=== PATIENT | male | born 1960 | race Caucasian/White ===

== ENCOUNTER 2018-08-28 17:38 | Emergency (ER) | payer SELFPAY ==
[2018-08-28] MEDS ORDERED: Acetaminophen 325 MG Tab PO ONE (18:28)
--- NOTE | 2018-08-28 18:28 | EDM.PDOC ---
ED HPI GENERAL MEDICAL PROBLEM - General Chief Complaint: Fever Stated Complaint: [facility] Time Seen by Provider: 08/28/18 18:01 Source of Information: Reports: Patient History Limitations: Reports: No Limitations - History of Present Illness INITIAL COMMENTS - FREE TEXT/NARRATIVE: 57-year-old male presents to the ED per [facility]. Female that is in the room identifies that he's been quite confused over the last 36-48 hours. Heart related all today. Has had no nausea or vomiting. Intermittent high fevers and developing chills while in the ED. Patient has chronic severe peripheral vascular disease and starting to have skin breakdown on both lower extremities over the last few weeks. He's got dry gangrene involving the left second third fourth and fifth toes. Is scheduled to see a vascular surgeon in [place] within the next 10 days. Apparently the feet have been very painful but he denies pain at this time due to confusion and acute delirium. He is very febrile on examination. Rambles when he speaks. No useful history could be gleaned from the patient as most of the answers that he provided were corrected by the female in the room. Onset: Gradual (Skin breakdown both lower extremities over the last several weeks.) Onset Date: 08/26/18 (Her to become confused disoriented over the last 36-48 hours.) Duration: Hour(s): (6 hours), Waxing/Waning Location: Reports: Generalized (Associate with high fever confusion. Altered level of consciousness is which is waxing and waning.) Quality: Reports: Other (After level of consciousness which is waxing and waning.) Severity: Severe Improves with: Reports: None Worsens with: Reports: None Context: Reports: Other. Denies: Activity, Exercise, Lifting, Sick Contact, Trauma Associated Symptoms: Reports: Confusion (Acute febrile illness over the last 36- 48 hours.), Cough, cough w sputum ( reports mild cough.), Fever/Chills ( Fever definitely over the last 36 hours.), Loss of Appetite, Malaise, Rash ( Both lower extremities have open skin wounds below the knee with skin sloughing. There is also gangrene of the left second third fourth and fifth toes.), Shortness of Breath, Weakness. Denies: Chest Pain, Diaphoresis, Nausea/ Vomiting, Seizure Treatments WHARF ATTENDANT: Reports: Other (see below) (None as far as I can ascertain.) Bilateral Foot Pain Score (Numeric/FACES): 5 - Related Data Allergies Allergy/AdvReac Type Severity Reaction Status Date / Time No Known Allergies Allergy Verified 08/28/18 17:47 Home Meds: Home Meds Carvedilol 12.5 mg PO BID 08/28/18 [History] Clopidogrel [Plavix] 75 mg PO DAILY 08/28/18 [History] Furosemide 40 mg PO BID 08/28/18 [History] Levothyroxine [Sythroid] 100 mcg PO DAILY 08/28/18 [History] atorvaSTATin [Lipitor] 40 mg PO DAILY 08/28/18 [History] glipiZIDE [Glucotrol XL] 5 mg PO DAILY 08/28/18 [History] Past Medical History Cardiovascular History: Reports: Bypass, CAD, High Cholesterol, Hypertension, PR (Triple bypass required in November 2016), PVD (Severe peripheral vascular disease with dry gangrene involving the left second third fourth and fifth toes. ) Respiratory History: Reports: COPD Genitourinary History: Reports: Chronic Renal Insuffiency, Other (See Below) Other Genitourinary History: "kidney issues" Endocrine/Metabolic History: Reports: Diabetes, Type II (Controlled with glipizide.) - Past Surgical History Cardiovascular Surgical History: Reports: Coronary Artery Bypass Social & Family History - Tobacco Use Smoking Status *Q: Former Smoker Used Tobacco, but Quit: Yes Month/Year Tobacco Last Used: 2017 - Recreational Drug Use Recreational Drug Use: No - Living Situation & Occupation Occupation: Unemployed ED ROS GENERAL - Review of Systems Review Of Systems: See Below Constitutional: Reports: Fever, Chills, Malaise, Fatigue, Decreased Appetite HEENT: Reports: Other (Dry mouth.) Respiratory: Reports: Shortness of Breath, Cough, Sputum. Denies: Wheezing, Pleuritic Chest Pain Cardiovascular: Reports: Blood Pressure Problem, Dyspnea on Exertion (Right dependent edema both lower extremities.), Edema. Denies: Chest Pain, Claudication, Lightheadedness, Orthopnea Endocrine: Reports: Fatigue, High Glucose GI/Abdominal: Reports: Constipation : Reports: Frequency Musculoskeletal: Reports: Back Pain, Other (Was having severe pain in his left lower extremity rest pain. Developing get dry gangrene of the left second third fourth and fifth toes.) Skin: Reports: Rash, Erythema (Both lower extremities both lower extremities), Other (Skin sloughing with erythema both lower extremities slightly worse than the left as compared to the right. The skin sloughing and erythema and possible superficial ulcers involving both lower extremities below the knees. She did dependent edema which apparently is chronic.) Neurological: Reports: Confusion, Other (Disorientation to time and place.) Psychiatric: Reports: Agitation (Mildly agitated alter mating with confusion and lethargy) Hematologic/Lymphatic: Reports: No Symptoms ED EXAM, SEPSIS - Physical Exam Exam: See Below Exam Limited By: Altered Mental Status (Patient is acutely confused and delirious at the time my examination. None of the questions that asked of him came back truthful due to confusion he just confabulates.) General Appearance: Other (A warm to palpation. Dry lips with some dried blood on his lower lip.) Eye Exam: Bilateral Eye: Normal Inspection (No scleral icterus.) Throat/Mouth: Other (Tongue and oral cavity are very dry) Head: Atraumatic (.), Normocephalic Neck: Normal Inspection, Supple, Non-Tender, Full Range of Motion. No: Lymphadenopathy (L), Lymphadenopathy (R) Respiratory/Chest: Respiratory Distress (Tachypnea at rest 22/m.), Decreased Breath Sounds (Increased breath sounds to the posterior 25% of lung [place] bilaterally.), Rhonchi (Few rhonchi upper anterior chest that seem to clear with coughing.). No: Rales, Wheezing Cardiovascular: Regular Rate, Rhythm, No Gallop (Resting tachycardia 1 12/m.), No Murmur, No Rub, Tachycardia, Other (Well-healed midline sternotomy incision due to bypass done in November 2017.). No: Normal Peripheral Pulses Peripheral Pulses: 0: Posterior Tibial (L) (Pulses in his feet dorsalis pedis are only identified by ultrasound.), Posterior Tibial (R), Dorsalis Pedis (L), Dorsalis Pedis (R) GI/Abdominal Exam: No Mass, Distended ( No tympany identified.), Other (Abdomen is distended and very firm to palpation.). No: Guarding, Rigid Back: Normal Inspection, Other. No: CVA Tenderness (L) (Unable to sit up on his own. Required 2 person assist), CVA Tenderness (R) Extremities: Other (Lower extremities below the knee shows superficial ulcerations in multiple areas with skin breakdown. Both legs are grossly edematous eye 4+ pitting edema to the knee. He has dry gangrene involving the left second third fourth and fifth toes. Skin sloughing from the anterior aspect of both lower extremities worse on the left as compared to the right. Diffuse erythema scattered both lower extremities. Both lower extremities have wounds that are oozing serous fluid. Ultrasound will be obtained from both lower extremities.) Neurological: Confused, Disoriented (Disoriented to time and place. Confabulates and makes up answers to questions asked of him.), Memory Loss Remote Events Psychiatric: Normal Affect Skin: Warm, Dry. No: Intact, Normal Color, No Rash Lymphatic: Bilateral: Inguinal Adenopathy (Mild adenopathy both inguinal areas.) EKG INTERPRETATION EKG Date: 08/28/18 Time: 18:20 Rhythm: Other Rate (Beats/Min): 106 [place]: LAD-Left [place] Deviation (-28) P-Wave: Enlarged (Possible left atrial enlargement.) QRS: Other (Increased soft tissue of the limb and precordial leads. There are definite Q waves in lead V1 and V3 V4 and V5 compatible with anteroseptal infarct in the past. There are small Q waves in 1 and aVL less than 25% of the QRS complex.) QT: Prolonged (QTC is mildly prolonged.) EKG Interpretation Comments: Abnormal ECG Course - Vital Signs Last Recorded V/S: Last Vital Signs Temp 36.9 C 08/28/18 21:18 Pulse 93 08/28/18 21:18 Resp 22 H 08/28/18 21:18 BP 130/74 08/28/18 21:18 Pulse Ox 97 08/28/18 21:18 - Orders/Labs/Meds Orders: Active Orders 24 hr Category Date Time Status EKG Documentation Completion [RC] STAT Care 08/28/18 18:04 Active Insert Whittaker Catheter [Insert Urinary Catheter] [OM.PC] Care 08/28/18 20:00 Ordered Q24H Insert Urinary Catheter [OM.PC] Q24H Care 08/28/18 20:15 Ordered RT Aerosol Therapy [RC] ASDIRECTED Care 08/28/18 19:32 Active Urinary Catheter Assessment [RC] ASDIRECTED Care 08/28/18 19:51 Active Urinary Catheter Assessment [RC] ASDIRECTED Care 08/28/18 20:08 Active CULTURE ANAEROBIC + SMEAR [RM] Stat Lab 08/28/18 18:30 Received CULTURE ANAEROBIC + SMEAR [RM] Stat Lab 08/28/18 18:31 Received CULTURE BLOOD [BC] Stat Lab 08/28/18 18:30 Received CULTURE BLOOD [BC] Stat Lab 08/28/18 18:45 Received Piperacillin/Tazobactam [Piperacil-Tazobact] 4.5 gm Med 08/28/18 18:45 Active Sodium Chloride 0.9% [Normal Saline] 100 ml IV Q6H Sodium Chloride 0.9% [Normal Saline] 1,000 ml Med 08/28/18 18:30 Active IV ASDIRECTED Blood Culture x2 Reflex Set [OM.PC] Stat Oth 08/28/18 18:04 Ordered Medication Orders Sodium Chloride (Normal Saline) 1,000 mls @ 250 mls/hr IV ASDIRECTED ALESIA Last Admin: 08/28/18 18:50 Dose: 250 mls/hr Piperacillin Sod/Tazobactam (Sod 4.5 gm/ Sodium Chloride) 100 mls @ 200 mls/hr IV Q6H [facility] Last Admin: 08/28/18 18:51 Dose: 200 mls/hr Labs: Laboratory Tests 08/28/18 08/28/18 08/28/18 Range/Units 18:30 18:30 18:30 WBC (4.23-9.07) K/mm3 RBC (4.63-6.08) M/mm3 Hgb (13.7-17.5) gm/L Hct (40.1-51.0) % MCV (79.0-92.2) fl MCH (25.7-32.2) pg MCHC (32.2-35.5) g/dl RDW Std Deviation (35.1-43.9) fL Plt Count (163-337) K/mm3 MPV (9.4-12.3) fl Neutrophils % (Manual) (40-60) % Band Neutrophils % (0-10) % Lymphocytes % (Manual) (20-40) % Atypical Lymphs % % Monocytes % (Manual) (2-10) % Eosinophils % (Manual) (0.8-7.0) % Basophils % (Manual) (0.2-1.2) Toxic Granulation Platelet Estimate Anisocytosis Macrocytosis RBC Morph Comment PT (9.5-12.1) SECONDS INR APTT (24-31) SECONDS Sodium 135 L (136-145) mEq/L Potassium 6.3 H* (3.5-5.1) mEq/L Chloride 102 (98-107) mEq/L Carbon Dioxide 22 (21-32) mEq/L Anion Gap 17.3 H (5-15) BUN 67 H (7-18) mg/dL Creatinine 3.3 H (0.7-1.3) mg/dL Est Cr Clr Drug Dosing 27.11 mL/min Estimated GFR (MDRD) 19 (>60) mL/min BUN/Creatinine Ratio 20.3 H (14-18) Glucose 252 H (74-106) mg/dL POC Glucose (70-105) mg/dL Hemoglobin A1c (4.50-6.20) % Lactic Acid 1.3 (0.4-2.0) mmol/L Calcium 9.7 (8.5-10.1) mg/dL Magnesium 2.0 (1.8-2.4) mg/dl Total Bilirubin 1.2 H (0.2-1.0) mg/dL AST 25 (15-37) U/L ALT 37 (16-63) U/L Alkaline Phosphatase 417 H (46-116) U/L Troponin I 0.060 H* (0.00-0.056) ng/mL C-Reactive Protein (<1.0) mg/dL NT-Pro-B Natriuret Pep (0-125) pg/mL Total Protein 8.3 H (6.4-8.2) g/dl Albumin 2.5 L (3.4-5.0) g/dl Globulin 5.8 gm/dL Albumin/Globulin Ratio 0.4 L (1-2) Urine Color (Yellow) Urine Appearance (Clear) Urine pH (5.0-8.0) Ur Specific [place] (1.005-1.030) Urine Protein (Negative) Urine Glucose (UA) (Negative) Urine Ketones (Negative) Urine Occult Blood (Negative) Urine Nitrite (Negative) Urine Bilirubin (Negative) Urine Urobilinogen (0.2-1.0) Ur Leukocyte Esterase (Negative) Urine RBC (0-5) /hpf Urine WBC (0-5) /hpf Ur Epithelial Cells (0-5) /hpf Amorphous Sediment (NOT SEEN) /hpf Urine Bacteria (FEW) /hpf Hyaline Casts (0-5) /lpf Coarse Granular Casts (0-5) /hpf Urine Mucus (FEW) /hpf 08/28/18 08/28/18 08/28/18 Range/Units 18:30 18:30 18:30 WBC (4.23-9.07) K/mm3 RBC (4.63-6.08) M/mm3 Hgb (13.7-17.5) gm/L Hct (40.1-51.0) % MCV (79.0-92.2) fl MCH (25.7-32.2) pg MCHC (32.2-35.5) g/dl RDW Std Deviation (35.1-43.9) fL Plt Count (163-337) K/mm3 MPV (9.4-12.3) fl Neutrophils % (Manual) (40-60) % Band Neutrophils % (0-10) % Lymphocytes % (Manual) (20-40) % Atypical Lymphs % % Monocytes % (Manual) (2-10) % Eosinophils % (Manual) (0.8-7.0) % Basophils % (Manual) (0.2-1.2) Toxic Granulation Platelet Estimate Anisocytosis Macrocytosis RBC Morph Comment PT (9.5-12.1) SECONDS INR APTT (24-31) SECONDS Sodium (136-145) mEq/L Potassium (3.5-5.1) mEq/L Chloride (98-107) mEq/L Carbon Dioxide (21-32) mEq/L Anion Gap (5-15) BUN (7-18) mg/dL Creatinine (0.7-1.3) mg/dL Est Cr Clr Drug Dosing mL/min Estimated GFR (MDRD) (>60) mL/min BUN/Creatinine Ratio (14-18) Glucose (74-106) mg/dL POC Glucose (70-105) mg/dL Hemoglobin A1c 7.60 H (4.50-6.20) % Lactic Acid (0.4-2.0) mmol/L Calcium (8.5-10.1) mg/dL Magnesium (1.8-2.4) mg/dl Total Bilirubin (0.2-1.0) mg/dL AST (15-37) U/L ALT (16-63) U/L Alkaline Phosphatase (46-116) U/L Troponin I (0.00-0.056) ng/mL C-Reactive Protein 25.6 H* (<1.0) mg/dL NT-Pro-B Natriuret Pep 34314 H (0-125) pg/mL Total Protein (6.4-8.2) g/dl Albumin (3.4-5.0) g/dl Globulin gm/dL Albumin/Globulin Ratio (1-2) Urine Color (Yellow) Urine Appearance (Clear) Urine pH (5.0-8.0) Ur Specific [place] (1.005-1.030) Urine Protein (Negative) Urine Glucose (UA) (Negative) Urine Ketones (Negative) Urine Occult Blood (Negative) Urine Nitrite (Negative) Urine Bilirubin (Negative) Urine Urobilinogen (0.2-1.0) Ur Leukocyte Esterase (Negative) Urine RBC (0-5) /hpf Urine WBC (0-5) /hpf Ur Epithelial Cells (0-5) /hpf Amorphous Sediment (NOT SEEN) /hpf Urine Bacteria (FEW) /hpf Hyaline Casts (0-5) /lpf Coarse Granular Casts (0-5) /hpf Urine Mucus (FEW) /hpf 08/28/18 08/28/18 08/28/18 Range/Units 18:45 18:45 19:55 WBC 24.63 H (4.23-9.07) K/mm3 RBC 4.03 L (4.63-6.08) M/mm3 Hgb 10.5 L (13.7-17.5) gm/L Hct 34.4 L (40.1-51.0) % MCV 85.4 (79.0-92.2) fl MCH 26.1 (25.7-32.2) pg MCHC 30.5 L (32.2-35.5) g/dl RDW Std Deviation 53.6 H (35.1-43.9) fL Plt Count 300 (163-337) K/mm3 MPV 9.0 L (9.4-12.3) fl Neutrophils % (Manual) 90 H (40-60) % Band Neutrophils % 3 (0-10) % Lymphocytes % (Manual) 4 L (20-40) % Atypical Lymphs % 0 % Monocytes % (Manual) 3 (2-10) % Eosinophils % (Manual) 0 L (0.8-7.0) % Basophils % (Manual) 0 L (0.2-1.2) Toxic Granulation Moderate Platelet Estimate Adequate Anisocytosis 1+ slight Macrocytosis 1+ slight RBC Morph Comment Not Reportable PT 14.6 H (9.5-12.1) SECONDS INR 1.35 APTT 41 H (24-31) SECONDS Sodium (136-145) mEq/L Potassium (3.5-5.1) mEq/L Chloride (98-107) mEq/L Carbon Dioxide (21-32) mEq/L Anion Gap (5-15) BUN (7-18) mg/dL Creatinine (0.7-1.3) mg/dL Est Cr Clr Drug Dosing mL/min Estimated GFR (MDRD) (>60) mL/min BUN/Creatinine Ratio (14-18) Glucose (74-106) mg/dL POC Glucose 235 H (70-105) mg/dL Hemoglobin A1c (4.50-6.20) % Lactic Acid (0.4-2.0) mmol/L Calcium (8.5-10.1) mg/dL Magnesium (1.8-2.4) mg/dl Total Bilirubin (0.2-1.0) mg/dL AST (15-37) U/L ALT (16-63) U/L Alkaline Phosphatase (46-116) U/L Troponin I (0.00-0.056) ng/mL C-Reactive Protein (<1.0) mg/dL NT-Pro-B Natriuret Pep (0-125) pg/mL Total Protein (6.4-8.2) g/dl Albumin (3.4-5.0) g/dl Globulin gm/dL Albumin/Globulin Ratio (1-2) Urine Color (Yellow) Urine Appearance (Clear) Urine pH (5.0-8.0) Ur Specific [place] (1.005-1.030) Urine Protein (Negative) Urine Glucose (UA) (Negative) Urine Ketones (Negative) Urine Occult Blood (Negative) Urine Nitrite (Negative) Urine Bilirubin (Negative) Urine Urobilinogen (0.2-1.0) Ur Leukocyte Esterase (Negative) Urine RBC (0-5) /hpf Urine WBC (0-5) /hpf Ur Epithelial Cells (0-5) /hpf Amorphous Sediment (NOT SEEN) /hpf Urine Bacteria (FEW) /hpf Hyaline Casts (0-5) /lpf Coarse Granular Casts (0-5) /hpf Urine Mucus (FEW) /hpf 08/28/18 08/28/18 Range/Units 20:38 20:45 WBC (4.23-9.07) K/mm3 RBC (4.63-6.08) M/mm3 Hgb (13.7-17.5) gm/L Hct (40.1-51.0) % MCV (79.0-92.2) fl MCH (25.7-32.2) pg MCHC (32.2-35.5) g/dl RDW Std Deviation (35.1-43.9) fL Plt Count (163-337) K/mm3 MPV (9.4-12.3) fl Neutrophils % (Manual) (40-60) % Band Neutrophils % (0-10) % Lymphocytes % (Manual) (20-40) % Atypical Lymphs % % Monocytes % (Manual) (2-10) % Eosinophils % (Manual) (0.8-7.0) % Basophils % (Manual) (0.2-1.2) Toxic Granulation Platelet Estimate Anisocytosis Macrocytosis RBC Morph Comment PT (9.5-12.1) SECONDS INR APTT (24-31) SECONDS Sodium (136-145) mEq/L Potassium (3.5-5.1) mEq/L Chloride (98-107) mEq/L Carbon Dioxide (21-32) mEq/L Anion Gap (5-15) BUN (7-18) mg/dL Creatinine (0.7-1.3) mg/dL Est Cr Clr Drug Dosing mL/min Estimated GFR (MDRD) (>60) mL/min BUN/Creatinine Ratio (14-18) Glucose (74-106) mg/dL POC Glucose 171 H (70-105) mg/dL Hemoglobin A1c (4.50-6.20) % Lactic Acid (0.4-2.0) mmol/L Calcium (8.5-10.1) mg/dL Magnesium (1.8-2.4) mg/dl Total Bilirubin (0.2-1.0) mg/dL AST (15-37) U/L ALT (16-63) U/L Alkaline Phosphatase (46-116) U/L Troponin I (0.00-0.056) ng/mL C-Reactive Protein (<1.0) mg/dL NT-Pro-B Natriuret Pep (0-125) pg/mL Total Protein (6.4-8.2) g/dl Albumin (3.4-5.0) g/dl Globulin gm/dL Albumin/Globulin Ratio (1-2) Urine Color Yellow (Yellow) Urine Appearance Clear (Clear) Urine pH 5.5 (5.0-8.0) Ur Specific [place] > or = 1.030 (1.005-1.030) Urine Protein 3+ H (Negative) Urine Glucose (UA) Negative (Negative) Urine Ketones Negative (Negative) Urine Occult Blood 1+ H (Negative) Urine Nitrite Negative (Negative) Urine Bilirubin Negative (Negative) Urine Urobilinogen 0.2 (0.2-1.0) Ur Leukocyte Esterase Negative (Negative) Urine RBC 5-10 H (0-5) /hpf Urine WBC 0-5 (0-5) /hpf Ur Epithelial Cells 0-5 (0-5) /hpf Amorphous Sediment Few H (NOT SEEN) /hpf Urine Bacteria Moderate H (FEW) /hpf Hyaline Casts 0-5 (0-5) /lpf Coarse Granular Casts 0-5 (0-5) /hpf Urine Mucus Few (FEW) /hpf Meds: Medications Generic Name Dose Route Start Last Admin Trade Name Freq PRN Reason Stop Dose Admin Sodium Chloride 1,000 mls @ 250 mls/hr 08/28/18 18:30 08/28/18 18:50 Normal Saline IV 250 mls/hr ASDIRECTED ALESIA Administration Piperacillin Sod/Tazobactam 100 mls @ 200 mls/hr 08/28/18 18:45 08/28/18 18: 51 Sod 4.5 gm/ Sodium Chloride IV 200 mls/hr Q6H ALESIA Administration Discontinued Medications Generic Name Dose Route Start Last Admin Trade Name Freq PRN Reason Stop Dose Admin Acetaminophen 975 mg 08/28/18 18:28 08/28/18 18:50 Tylenol PO 08/28/18 18:29 975 mg NOW ONE Administration Albuterol 7.5 mg 08/28/18 19:31 02/18/19 20:24 Proventil Neb Soln NEB 08/28/18 19:32 7.5 mg ONETIME ONE Administration Albuterol Confirm 08/28/18 20:22 08/28/18 21:48 Proventil Administered 08/28/18 20:23 Not Given Dose 2.5 mg .ROUTE .STK-MED ONE Albuterol Confirm 08/28/18 20:23 08/28/18 21:48 Proventil Neb Soln Administered 08/28/18 20:24 Not Given Dose 2.5 mg .ROUTE .STK-MED ONE Furosemide 80 mg 08/28/18 19:31 08/28/18 20:02 Lasix IVPUSH 08/28/18 19:32 80 mg NOW ONE Administration Vancomycin HCl 1 gm/ Sodium 250 mls @ 250 mls/hr 08/28/18 21:08 08/28/18 22: 41 Chloride IV 08/28/18 22:07 250 mls/hr ONETIME ONE Administration Insulin Human Regular 10 unit 08/28/18 19:32 08/28/18 20:01 Humulin R IV 08/28/18 19:33 10 unit ONETIME ONE Administration Sodium Bicarbonate 50 meq 08/28/18 19:33 08/28/18 20:02 Sodium Bicarbonate 8.4% IVPUSH 08/28/18 19:34 Not Given ONETIME ONE Sodium Bicarbonate Confirm 08/28/18 19:41 08/28/18 20:02 Sodium Bicarbonate 8.4% Administered 08/28/18 19:42 50 meq Dose Administration 50 meq .ROUTE .STK-[facility] ONE - Radiology Interpretation Free Text/Narrative:: 57-year-old male who is a type II diabetic with known atherosclerosis including coronary disease and peripheral vascular disease presents to the ED per ambulance. Patient apparently developed a fever at home over the last 36-48 hours with increased confusion and acute delirium. His altered level of consciousness between mild agitation and confusion and lethargy. He has not eaten at all today. He's had no vomiting. He has dry gangrene of the left second third fourth and fifth toes with open ulcerations and skin sloughing both anterior lower extremities below the knees. Superficial ulcerations in many areas that are the likely source of his current infection. Patient is markedly febrile. Plan IV normal saline at 250 mils per hour. Septic workup to be carried out. This will include a chest x-ray and a view of his abdomen which is very firm and difficult to examine. Cultures from both lower extremity wounds obtained. He will be given Zosyn 4.5 mg IV as soon as blood cultures 2 been collected. Given Tylenol 975 mg orally for fever relief. At this time his O2 sats and blood pressure are maintained. He likely will require transfer to [facility] as he is going to be in the hospital for a lengthy period of time possibly requiring treatment at [facility] as well. - Re-Assessments/Exams Free Text/Narrative Re-Assessment/Exam: 08/28/18 19:31Part of his labs are back. His white count is markedly elevated at 24.63. Differential pending. Hemoglobin slightly low at 10.5 with hematocrit of 34.4. Blood count is 300,000. PT is 14.6 with an elevated INR 1.35. PTT is elevated at 41. Sodium 135 potassium came back at 6.3. Chloride is 12 with a bicarbonate of 22. Anion gap is elevated at 17.3. BUN is 67 with a creatinine of 3.3. Estimated GFR is 19 the stage IV chronic kidney disease. BUN/creatinine ratio is 20.3. Glucose is 252. Hemoglobin A1c is 7.60. Lactic acid is 1.3. Calcium is 9.7. Magnesium is 2.0. Bilirubin is 1.2. AST is 25 with a nail to 37. Phosphatase is elevated at 417. Troponin I is 0.060. BNP is 31,517. Total protein is 8.3 albumin fraction is 2.5. 08/28/18 19:34 patient is in severe congestive failure. Will be given 80 mg of Lasix IV to the stage IV chronic date kidney disease. His potassium is elevated at 6.3. Will be given 1 amp of sodium bicarbonate IV. Will give him 10 units of regular insulin IV as his blood sugar is 300. This combination will hopefully start to bring his serum potassium back down. 08/28/18 19:52 Differential is now back on the white blood cell count. Neutrophils are 90% with 3% band cells. CRP is 25.6. Whittaker catheter placed for intake and output assessment as he is critically ill. BP remains good at 139/ 68. Patient remains confused and disoriented. Temperature is slowly coming down. Chest x-ray done portably reveals cardiomegaly with a moderate left-sided pleural effusion taking it 50% of the left lung volume. Small trace effusion right side. X-ray of the abdomen shows nonspecific bowel gas pattern. Slight increased stool in the descending colon. No bowel obstruction. As remained 98% on 3 L/m by nasal cannula. Will discuss case with [facility] hospitalist in [place]. It will be across up whether he needs to go to ICU or not. 08/28/18 21;00: I have put a call in to [facility] in [place] to the 1 call nurse. She is going to try and speak with Dr. Vigil cash applications representative [facility] in regards to possible admission to the ICU versus admission to the med surgery floor with the hospitalist. 08/28/18 21:30: Spoke with and he has agreed to accept the patient in transfer with a directed admission to the intensive care unit. Patient will be sent to that institution per ground ambulance.His is guarded at this time due to multiple comorbidities Departure - Departure Time of Disposition: 22:40 Disposition: DC/Tfer to [facility] 02 Condition: Critical Clinical Impression: Septicemia, Chronic renal insufficiency, stage IV (severe), Hyperkalemia, Delirium due to another medical condition, acute, mixed level of activity, Peripheral vascular disease, Gangrene of toe of left foot, Acute febrile illness CHF (congestive heart failure), NYHA class III Qualifiers: Congestive heart failure chronicity: acute on chronic - Discharge Information *PRESCRIPTION DRUG MONITORING PROGRAM REVIEWED*: Not Applicable *COPY OF PRESCRIPTION DRUG MONITORING REPORT IN PATIENT JENNIFER: Not Applicable Referrals: Luis Manuel Christy Jr, MD [Primary Care Provider] - Forms: ED Department Discharge - My Orders Last 24 Hours: My Active Orders 08/28/18 18:30 CULTURE ANAEROBIC + SMEAR [RM] Stat Sodium Chloride 0.9% [Normal Saline] 1,000 ml IV ASDIRECTED 08/28/18 18:31 CULTURE ANAEROBIC + SMEAR [RM] Stat 08/28/18 18:45 Piperacillin/Tazobactam [Piperacil-Tazobact] 4.5 gm Sodium Chloride 0.9% [ Normal Saline] 100 ml IV Q6H 08/28/18 19:32 RT Aerosol Therapy [RC] ASDIRECTED 08/28/18 19:51 Urinary Catheter Assessment [RC] ASDIRECTED 08/28/18 20:00 Insert Whittaker Catheter [Insert Urinary Catheter] [OM.PC] Q24H 08/28/18 20:08 Urinary Catheter Assessment [RC] ASDIRECTED 08/28/18 20:15 Insert Urinary Catheter [OM.PC] Q24H - Assessment/Plan Last 24 Hours: My Active Orders 08/28/18 18:30 CULTURE ANAEROBIC + SMEAR [RM] Stat Sodium Chloride 0.9% [Normal Saline] 1,000 ml IV ASDIRECTED 08/28/18 18:31 CULTURE ANAEROBIC + SMEAR [RM] Stat 08/28/18 18:45 Piperacillin/Tazobactam [Piperacil-Tazobact] 4.5 gm Sodium Chloride 0.9% [ Normal Saline] 100 ml IV Q6H 08/28/18 19:32 RT Aerosol Therapy [RC] ASDIRECTED 08/28/18 19:51 Urinary Catheter Assessment [RC] ASDIRECTED 08/28/18 20:00 Insert Whittaker Catheter [Insert Urinary Catheter] [OM.PC] Q24H 08/28/18 20:08 Urinary Catheter Assessment [RC] ASDIRECTED 08/28/18 20:15 Insert Urinary Catheter [OM.PC] Q24H
[2018-08-28] MEDS ORDERED: Sodium Chloride 0.9% 1,000 ML IV SCH (18:30)
[2018-08-28] MEDS ORDERED: Piperacillin/Tazobactam 4.5 GM in Sodium Chloride 0.9% 100 ML IV SCH (18:45)
[2018-08-28 19:26] LABS: HEMOGLOBIN A1C 7.6 % (4.50-6.20)
[2018-08-28] MEDS ORDERED: Furosemide 40 MG/4 ML VIAL IVPUSH ONE (19:31)
[2018-08-28] MEDS ORDERED: Albuterol 0.083% 2.5 MG/3 ML Neb Soln NEB ONE (19:31)
[2018-08-28] MEDS ORDERED: Insulin Regular, Human 100 Units/ML 3 ML Vial IV ONE (19:32)
[2018-08-28] MEDS ORDERED: Sodium Bicarbonate 8.4% 50 MEQ/50 ML Syringe IVPUSH ONE (19:33)
[2018-08-28] MEDS ORDERED: Sodium Bicarbonate 8.4% 50 MEQ/50 ML SDV ONE (19:41)
[2018-08-28] MEDS ORDERED: Albuterol 0.5% 2.5 MG/0.5 ML Neb Soln ONE (20:22)
[2018-08-28] MEDS ORDERED: Albuterol 0.083% 2.5 MG/3 ML Neb Soln ONE (20:23)
--- NOTE | 2018-08-28 21:30 | CR ---
Chest: Portable view of the chest is obtained. Comparison: No previous study. Silhouetted left hemidiaphragm is seen presumably due to consolidation within the left lower lung. Heart is felt to be somewhat enlarged. Previous sternotomy is seen. Left upper and right lung are clear. Impression: 1. Findings suspicious for left lower lobe consolidation. 2. Mild cardiomegaly with prior sternotomy. Diagnostic code #3
--- NOTE | 2018-08-28 21:30 | CR ---
Abdomen: Supine view of the abdomen was obtained. Comparison: No previous abdominal x-ray. Vascular calcification is seen. Moderate joint space narrowing is noted within the right hip and mild joint space narrowing is seen within the left hip. Silhouetting of the left hemidiaphragm is again noted as described on chest x-ray report. Bowel gas pattern is normal. Impression: 1. Findings as noted above. Nothing acute is seen within the abdomen. Diagnostic code #2
== END 2018-08-28 22:40 ==
LOC: JD.ED 17:38
DX: A41.9 Sepsis, unspecified organism (principal); I13.0 Hypertensive heart and chronic kidney disease with heart failure and stage 1 through stage 4 chronic kidney disease, or unspecified chronic kidney disease; E11.22 Type 2 diabetes mellitus with diabetic chronic kidney disease; N18.4 Chronic kidney disease, stage 4 (severe); I50.23 Acute on chronic systolic (congestive) heart failure; E87.5 Hyperkalemia; E11.52 Type 2 diabetes mellitus with diabetic peripheral angiopathy with gangrene; I96 Gangrene, not elsewhere classified; F05 Delirium due to known physiological condition; I25.10 Atherosclerotic heart disease of native coronary artery without angina pectoris; E78.00 Pure hypercholesterolemia, unspecified; I25.2 Old myocardial infarction; J44.9 Chronic obstructive pulmonary disease, unspecified; Z87.891 Personal history of nicotine dependence; Z79.01 Long term (current) use of anticoagulants; Z79.899 Other long term (current) drug therapy; Z79.84 Long term (current) use of oral hypoglycemic drugs
CPT/HCPCS: 36415; 71045; 74018; 80053; 81001; 82962; 83036; 83605; 83735; 83880; 84484; 85007; 85027; 85610; 85730; 86140; 87040; 87075; 87205; 93005; 94640; 96365; 96375; 99285; A9270; J1815; J1940; J2543; J3370; J7030; J7040; J7050; 93010